=== PATIENT | female | born 1995 | race Caucasian/White ===

== ENCOUNTER 2017-01-09 23:24 | Emergency (ER) | payer OTHER ==
[2017-01-09] MEDS ORDERED: fentaNYL 100 MCG/2 ML INJ IVP ONE (23:50)
[2017-01-09] MEDS ORDERED: KETOROLAC 15 MG/1 ML SDV IVP ONE (23:50)
--- NOTE | 2017-01-09 23:50 | EDPHY ---
H & P Stated Complaint: vaginal pain Time Seen by Provider: 01/09/17 23:40 HPI/ROS: HPI The patient presents with lower abdominal pain which has been present since she had an IUD inserted on December 22, though much more severe over the last 48 hours. The pain is sharp, mostly in her mid lower abdomen the radiates toward her back. It is worse with movement and improved somewhat with ibuprofen. She has had vaginal bleeding since insertion of the IUD, using 4-5 pads per day. She denies any vaginal discharge or fevers. She has no prior history of similar pain. REVIEW OF SYSTEMS Constitutional: No fever, no chills. Eyes: No discharge. ENT: No sore throat. Cardiovascular: No chest pain, no palpitations. Respiratory: No cough, no shortness of breath. Gastrointestinal: See HPI Genitourinary: No hematuria. Musculoskeletal: No back pain. Skin: No rashes. Neurological: No headache. PMHx: Healthy, IUD in place PHYSICAL General Appearance: Alert, uncomfortable appearing Eyes: Pupils equal and round no pallor or injection ENT, Mouth: Mucous membranes moist Respiratory: There are no retractions, lungs are clear to auscultation Cardiovascular: Regular rate and rhythm Gastrointestinal: Abdomen is soft with tenderness in the lower quadrants. Neurological: A&O, moves all extremities Skin: Warm and dry, no rashes Musculoskeletal: Neck is supple non tender Extremities: symmetrical, full range of motion Psychiatric: Patient is oriented X 3, there is no agitation Source: Patient Exam Limitations: No limitations - Personal History LMP (Females 10-55): 22-28 Days Ago Current Tetanus/Diphtheria Vaccine: Yes Current Tetanus Diphtheria and Acellular Pertussis (TDAP): Yes - Medical/Surgical History Hx Asthma: No Hx Chronic Respiratory Disease: No Hx Diabetes: No Hx Cardiac Disease: No Hx Renal Disease: No Hx Cirrhosis: No Hx Alcoholism: No Hx HIV/AIDS: No Hx Splenectomy or Spleen Trauma: No Other PMH: DENIES - Social History Smoking Status: Never smoked Constitutional: Initial Vital Signs Temperature (C) 36.3 C 01/09/17 23:27 Heart Rate 100 01/09/17 23:27 Respiratory Rate 16 01/09/17 23:27 Blood Pressure 134/81 H 01/09/17 23:27 O2 Sat (%) 99 01/09/17 23:27 O2 Delivery Mode Room Air Allergies/Adverse Reactions: amoxicillin Allergy (Verified 01/09/17 23:27) Opioids - Morphine Analogues Allergy (Verified 01/09/17 23:27) PAIN MEDS Allergy (Uncoded 03/05/16 13:20) Home Medications: Medication Instructions Recorded NK [No Known Home Meds] 01/09/17 Medical Decision Making - Diagnostics Imaging: Pelvic ultrasound reviewed by me, interpreted by Dr. Velasquez shows IUD in appropriate position, small amount of free fluid in the pelvis. ED Course/Re-evaluation: 11:45 p.m.- Initial patient encounter, she is quite uncomfortable appearing. She does have tenderness in her lower abdomen. I have ordered Toradol and fentanyl for her. I will check basic labs and an ultrasound. Previously in the evening I talked with her primary OBGYN Dr. Meek who explained the patient's recent history of IUD placement, she had an ultrasound to confirm placement when she return to the clinic with pain. She was evaluated for a UTI with a negative urine culture as well. 12:50 a.m.- The patient is feeling better after receiving pain medication. Labs have resulted and are normal except for urine suggestive of infection. The patient does not have any irritative voiding symptoms I am not sure if this is a contaminated specimen. I will not treat until the urine culture has resulted. I spoke with Dr. Velasquez of Radiology. The patient's IUD is in good position. The patient is certain that she would like to have the IUD removed, thus I will perform this in the ER. 1:10 a.m.- Patient's IUD was removed without any difficulty. She continues to have mild pain. I will give her a dose of Tylenol and she will be discharged home with instructions to continue ibuprofen and follow up with her OBGYN. Differential Diagnosis: This is a 21-year-old healthy female who presents with lower abdominal pain associated with vaginal bleeding for the last 48 hours, she is status post IUD insertion on December 22. On exam, she is uncomfortable appearing, she is tender in her lower quadrants. Differential diagnosis includes IUD which has migrated, UTI, PID. - Data Points Laboratory Results: Laboratory Results 01/10/17 00:05 01/10/17 00:05 01/10/17 00:05 WBC 11.48 H 10^3/uL (3.80-9.50) RBC 4.93 10^6/uL (4.18-5.33) Hgb 14.5 g/dL (12.6-16.3) Hct 41.7 % (38.0-47.0) MCV 84.6 fL (81.5-99.8) MCH 29.4 pg (27.9-34.1) MCHC 34.8 g/dL (32.4-36.7) RDW 12.8 % (11.5-15.2) Plt Count 261 10^3/uL (150-400) MPV 9.3 fL (8.7-11.7) Neut % (Auto) 55.2 % (39.3-74.2) Lymph % (Auto) 34.6 % (15.0-45.0) Miner % (Auto) 7.7 % (4.5-13.0) Eos % (Auto) 1.8 % (0.6-7.6) Baso % (Auto) 0.4 % (0.3-1.7) Nucleat RBC Rel Count 0.0 % (0.0-0.2) Absolute Neuts (auto) 6.34 10^3/uL (1.70-6.50) Absolute Lymphs (auto) 3.97 H 10^3/uL (1.00-3.00) Absolute Monos (auto) 0.88 H 10^3/uL (0.30-0.80) Absolute Eos (auto) 0.21 10^3/uL (0.03-0.40) Absolute Basos (auto) 0.05 10^3/uL (0.02-0.10) Absolute Nucleated RBC 0.00 10^3/uL (0-0.01) Immature Gran % 0.3 % (0.0-1.1) Immature Gran # 0.03 10^3/uL (0.00-0.10) Sodium 144 mEq/L (134-144) Potassium 4.0 mEq/L (3.5-5.2) Chloride 111 H mEq/L (97-110) Carbon Dioxide 20 L mEq/l (22-31) Anion Gap 13 mEq/L (8-16) BUN 16 mg/dL (7-23) Creatinine 0.8 mg/dL (0.6-1.0) Estimated GFR > 60 Glucose 92 mg/dL (70-100) Calcium 9.9 mg/dL (8.5-10.4) Total Bilirubin 0.5 mg/dL (0.1-1.4) AST 16 IU/L (14-46) ALT 31 IU/L (9-52) Alkaline Phosphatase 53 IU/L (38-126) Total Protein 7.4 g/dL (6.3-8.2) Albumin 4.4 g/dL (3.5-5.0) Beta HCG, Qual NEGATIVE Urine Color YELLOW Urine Appearance MODERATELY TURBID Urine pH 7.0 (5.0-7.5) Ur Specific [place] 1.025 (1.002-1.030) Urine Protein 1+ H (NEGATIVE) Urine Ketones NEGATIVE (NEGATIVE) Urine Blood 3+ H (NEGATIVE) Urine Nitrate NEGATIVE (NEGATIVE) Urine Bilirubin NEGATIVE (NEGATIVE) Urine Urobilinogen NEGATIVE EU (0.2-1.0) Ur Leukocyte Esterase 2+ H (NEGATIVE) Urine RBC 50-182 H /hpf (0-3) Urine WBC 50-182 H /hpf (0-3) Ur Epithelial Cells TRACE /lpf (NONE-1+) Urine Bacteria TRACE H /hpf (NONE SEEN) Urine Mucus TRACE /lpf (NONE-1+) Ur Culture Indicated? INDICATED H (NI) Urine Glucose NEGATIVE (NEGATIVE) Medications Given: Discontinued Medications Acetaminophen (Tylenol) 1,000 mg PO EDNOW ONE Stop: 01/10/17 01:43 Last Admin: 01/10/17 01:47 Dose: 1,000 mg Fentanyl (Sublimaze) 50 mcg IVP EDNOW ONE Stop: 01/09/17 23:51 Last Admin: 01/10/17 00:08 Dose: 50 mcg Hydromorphone HCl (Dilaudid) 0.5 mg IVP EDNOW ONE Stop: 01/10/17 00:50 Last Admin: 01/10/17 01:02 Dose: 0.5 mg Ketorolac Tromethamine (Toradol) 15 mg IVP EDNOW ONE Stop: 01/09/17 23:51 Last Admin: 01/10/17 00:09 Dose: 15 mg Departure - Departure Disposition: Home, Routine, Self-Care Clinical Impression: IUD complication, Lower abdominal pain Condition: Good Instructions: Pelvic Pain in Women (ED) Additional Instructions: Please return to the emergency room if your worse in any way. Referrals: Dinora Blake MD [Medical Doctor] - As per Instructions
[2017-01-10 00:13] LABS: % IMMATURE GRANULYOCYTES 0.3 % (0.0-1.1); ABSOLUTE IMMATURE GRANULOCYTES 0.03 10^3/uL (0.00-0.10); ADD DIFF? NO; ADD MORPH? NO; ADD SCAN? NO; ATYPICAL LYMPHOCYTE FLAG 30 (0-99); FRAGMENT RBC FLAG 0 (0-99); HEMATOCRIT 41.7 % (38.0-47.0); HEMOGLOBIN 14.5 g/dL (12.6-16.3); LEFT SHIFT FLG 0 (0-99); LIPEMIA HEMOLYSIS FLAG 90 (0-99); MEAN CELL HEMOGLOBIN 29.4 pg (27.9-34.1); MEAN CELL HEMOGLOBIN CONCENTR. 34.8 g/dL (32.4-36.7); MEAN CELL VOLUME 84.6 fL (81.5-99.8); MEAN PLATELET VOLUME 9.3 fL (8.7-11.7); PLATELET CLUMPS FLAG 20 (0-99); PLATELET COUNT 261 10^3/uL (150-400); RED BLOOD CELL COUNT 4.93 10^6/uL (4.18-5.33); RED CELL DISTRIBUTION WIDTH 12.8 % (11.5-15.2)
[2017-01-10 00:18] LABS: COLOR YELLOW; LEUKOCYTE ESTERASE,URINE 2+ (NEGATIVE); NITRITE,URINE NEGATIVE (NEGATIVE)
[2017-01-10 00:21] LABS: BACTERIA TRACE /hpf (NONE SEEN); MUCUS TRACE /lpf (NONE-1+); RBC,URINE 50-182 /hpf (0-3); WBC,URINE 50-182 /hpf (0-3)
[2017-01-10 00:34] LABS: ALANINE AMINOTRANSFERASE 31 IU/L (9-52); ALBUMIN 4.4 g/dL (3.5-5.0); ALKALINE PHOSPHATASE 53 IU/L (38-126); ANION GAP 13 mEq/L (8-16); ASPARTATE AMINOTRANSFERASE 16 IU/L (14-46); BILIRUBIN,TOTAL 0.5 mg/dL (0.1-1.4); CALCIUM 9.9 mg/dL (8.5-10.4); CARBON DIOXIDE 20 mEq/l (22-31); CHLORIDE 111 mEq/L (97-110); CREATININE 0.8 mg/dL (0.6-1.0); GLOMERULAR FILTRATION RATE > 60; GLUCOSE 92 mg/dL (70-100); SODIUM 144 mEq/L (134-144); TOTAL PROTEIN 7.4 g/dL (6.3-8.2)
[2017-01-10] MEDS ORDERED: HYDROmorphONE/DILAUDID 1 MG/ML SYR ONE (00:43)
[2017-01-10] MEDS ORDERED: HYDROmorphONE/DILAUDID 1 MG/ML SYR IVP ONE (00:49)
[2017-01-10 01:21] VITALS: RESP 16; O2SAT 98
[2017-01-10] MEDS ORDERED: ACETAMINOPHEN 500 MG TAB PO ONE (01:42)
[2017-01-10 01:56] VITALS: BP 114/85; PULSE 68; TEMP 97.7
--- NOTE | 2017-01-10 16:17 | US ---
Ultrasound Pelvis Complete (Transabdominal and Endovaginal) Including Duplex/Doppler Imaging History: Pelvic pain ? IUD position. Comparison: None. Technique: Transabdominal and endovaginal ultrasound images were obtained. Endovaginal images obtain ed for better evaluation of the uterine myometrium and adnexa. Duplex/Doppler imaging of adnexa. Findings: Uterus measures 7 x 3 x 5 cm. Endometrial thickness is 4 mm. IUD appears in good position centrally within the endometrial canal. No definite uterine leiomyomata. Right ovary measures 3.1 x 2.3 x 1.7 cm. Left ovary measures 3.9 x 2.2 x 2.1 cm. No adnexal masses. M inimal free fluid in the pelvis. Color Doppler flow to both ovaries without torsion. Impression: 1. IUD appears in good position centrally within the endometrial canal. 2. No adnexal masses or ovarian torsion. Findings and recommendations discussed with emergency department physician, Debra Grimes MD at 0045 hours on January 10, 2017. Final report concurs with initial preliminary interpretation.
== END 2017-01-10 01:56 | disposition home or self-care (01) ==
DX: R10.30 Lower abdominal pain, unspecified (principal); T83.39XA Other mechanical complication of intrauterine contraceptive device, initial encounter; Y82.8 Other medical devices associated with adverse incidents
CPT/HCPCS: 96374; J1170; J1885; J3010

== ENCOUNTER 2017-01-11 20:07 | Emergency (ER) | payer OTHER ==
[2017-01-11 20:14] VITALS: RESP 18; TEMP 97.9
[2017-01-11] MEDS ORDERED: NS 1,000 ML IV ONE ×2 (21:00→22:15)
[2017-01-11] MEDS ORDERED: ONDANSETRON 4 MG/2 ML VIAL IVP ONE ×2 (21:00→22:15)
--- NOTE | 2017-01-11 21:07 | EDPHY ---
H & P Stated Complaint: lower abd pain hesitancy n/v HPI/ROS: CHIEF COMPLAINT: Abdominal pelvic pain HISTORY OF PRESENT ILLNESS: several days of lower abdominal and central abdominal pain. This is moderate to severe. This started after IUD was placed 2 weeks ago. It is worsened over the past few days. Nausea but no vomiting. No changes in her bowel movements. She does have vaginal bleeding that is unchanged from previous visit. She has no chest pain or shortness of breath. No syncope. Less than 1 pad per hour vaginal bleeding. She was seen here 2 days ago, when a pelvic exam was performed at IUD was removed. She was to follow up with her OB radar engineer, but her pain is too severe at this time PREVIOUS ABDOMINAL SURGERIES/DIAGNOSES: IUD removal 2 days ago. REVIEW OF SYSTEMS: Ten systems reviewed and are negative unless otherwise noted in the HPI EXAMINATION: General Appearance: Alert, no distress. Anxious Head: normocephalic, atraumatic Eyes: Pupils equal and round, no conjunctival pallor or injection ENT, Mouth: Mucous membranes moist. Uvula midline. No erythema or edema. Neck: Normal inspection, supple, non-tender Respiratory: Lungs are clear to auscultation . No wheezing, rhonchi or crackles. Cardiovascular: Regular rate and rhythm . No murmur. Pulses intact distally. Gastrointestinal: Abdomen is soft. Significant tender to palpation over the umbilical, epigastric, and bilateral lower quadrants. There is no tympany or rigidity. Guarding in multiple areas. No CVA tenderness. Neurological: A&O, nonfocal, normal gait Skin: Warm and dry, no rash Extremities: Nontender, no pedal edema Psychiatric: Mood and affect normal DIFFERENTIAL DIAGNOSES: Including but not limited to Acute appendicitis , enteritis, colitis, diverticulitis, cystitis, UTI, stone MDM: 9:00 p.m. central lower abdominal pain. She was here 2 days ago for the same pain. At that time her IUD was removed and she was discharged home with pain medication and nausea medication. She spoke with her radar engineer this morning and informed her of her severity of pain, And she recommended that she present to the emergency department. She is significantly tender to palpation in multiple areas of the abdomen. This is possibly of proportion to examination. She did not have a CT scan on her 1st visit, thus I will order CT scan of the abdomen and pelvis following creatinine verification. 10:00 p.m. notified by radiologist Dr. Dolye that there is no acute finding on the CT scan. There may be a very small area around the transverse colon that has some stranding. This is only seen on 1 set of images and not on the sagittal or coronal. This does not correlate clinically with any of her pain. Given the laboratory studies I feel this is more likely related to endometriosis than any other of the differential. She does have a mild leukocytosis, but she also has bacterial vaginosis that was positive on a swab from a radar engineer but is yet to be treated. She has no flank pain upon palpation. She is not vomiting. Her pain is improving here. We discussed discharge home with antibiotic therapy for the bacterial vaginosis, follow up with her radar engineer, pain medication and nausea medication. She is comfortable with this plan and comfortable with being discharged home at this time. ED Precautions: Worsening pain. Fever. Bloody stools. Bloody emesis. Constipation or diarrhea. SUPERVISION: Patient was evaluated in conjunction with the supervising physician. Please see their note for details. Source: Patient - Personal History LMP (Females 10-55): Now Current Tetanus/Diphtheria Vaccine: Yes Current Tetanus Diphtheria and Acellular Pertussis (TDAP): Yes - Medical/Surgical History Hx Asthma: No Hx Chronic Respiratory Disease: No Hx Diabetes: No Hx Cardiac Disease: No Hx Renal Disease: No Hx Cirrhosis: No Hx Alcoholism: No Hx HIV/AIDS: No Hx Splenectomy or Spleen Trauma: No Other PMH: DENIES - Social History Smoking Status: Never smoked Constitutional: Initial Vital Signs Temperature (C) 97.9 F 01/11/17 20:10 Heart Rate 96 01/11/17 20:10 Respiratory Rate 18 01/11/17 20:10 Blood Pressure 127/82 H 01/11/17 20:10 O2 Sat (%) 98 01/11/17 20:10 O2 Delivery Mode Room Air Allergies/Adverse Reactions: amoxicillin Allergy (Verified 01/09/17 23:27) Opioids - Morphine Analogues Allergy (Verified 01/09/17 23:27) PAIN MEDS Allergy (Uncoded 03/05/16 13:20) Home Medications: Medication Instructions Recorded Ondansetron Odt [Zofran Odt 4 mg 4 mg PO Q4 PRN #12 tab 01/11/17 (*)] metroNIDAZOLE [Flagyl 500 mg (*)] 500 mg PO TID #28 tab 01/11/17 oxyCODONE HCL/ACETAMINOPHEN 1 each PO Q4-6PRN PRN #20 tablet 01/11/17 [Percocet 5-325 mg Tablet] Medical Decision Making - Data Points Laboratory Results: Laboratory Results 01/11/17 21:30 01/11/17 21:30 01/11/17 01/11/17 01/11/17 21:30 21:28 20:20 WBC 13.86 H 10^3/uL (3.80-9.50) RBC 4.77 10^6/uL (4.18-5.33) Hgb 14.3 g/dL (12.6-16.3) POC Hgb 14.3 gm/dL (12.3-15.9) Hct 40.7 % (38.0-47.0) POC Hct 42 % (35.5-47.5) MCV 85.3 fL (81.5-99.8) MCH 30.0 pg (27.9-34.1) MCHC 35.1 g/dL (32.4-36.7) RDW 12.9 % (11.5-15.2) Plt Count 262 10^3/uL (150-400) MPV 9.6 fL (8.7-11.7) Neut % (Auto) 69.6 % (39.3-74.2) Lymph % (Auto) 23.7 % (15.0-45.0) Humphreys % (Auto) 5.4 % (4.5-13.0) Eos % (Auto) 0.5 L % (0.6-7.6) Baso % (Auto) 0.4 % (0.3-1.7) Nucleat RBC Rel Count 0.0 % (0.0-0.2) Absolute Neuts (auto) 9.65 H 10^3/uL (1.70-6.50) Absolute Lymphs (auto) 3.28 H 10^3/uL (1.00-3.00) Absolute Monos (auto) 0.75 10^3/uL (0.30-0.80) Absolute Eos (auto) 0.07 10^3/uL (0.03-0.40) Absolute Basos (auto) 0.06 10^3/uL (0.02-0.10) Absolute Nucleated RBC 0.00 10^3/uL (0-0.01) Immature Gran % 0.4 % (0.0-1.1) Immature Gran # 0.05 10^3/uL (0.00-0.10) PT 13.8 SEC (12.0-15.0) INR 1.07 (0.83-1.16) APTT 27.4 SEC (23.0-38.0) POC Sodium 143 mEq/L (134-144) Sodium 140 mEq/L (134-144) POC Potassium 3.2 L mEq/L (3.3-5.0) Potassium 3.5 mEq/L (3.5-5.2) POC Chloride 109 H mEq/L (96-108) Chloride 109 mEq/L (97-110) Carbon Dioxide 20 L mEq/l (22-31) Anion Gap 11 mEq/L (8-16) POC BUN 11 mg/dL (7-23) BUN 12 mg/dL (7-23) Creatinine 0.8 mg/dL (0.6-1.0) POC Creatinine 0.7 mg/dL (0.6-1.2) Estimated GFR > 60 Glucose 100 mg/dL (70-100) POC Glucose 103 H mg/dL (70-100) Calcium 9.9 mg/dL (8.5-10.4) Total Bilirubin 0.8 D mg/dL (0.1-1.4) Conjugated Bilirubin 0.5 mg/dL (0.0-0.5) Unconjugated Bilirubin 0.3 mg/dL (0.0-1.1) AST 14 IU/L (14-46) ALT 32 IU/L (9-52) Alkaline Phosphatase 54 IU/L (38-126) Total Protein 7.3 g/dL (6.3-8.2) Albumin 4.5 g/dL (3.5-5.0) Lipase 80.0 IU/L (23-300) Beta HCG, Qual NEGATIVE Urine Color YELLOW Urine Appearance CLEAR Urine pH 7.0 (5.0-7.5) Ur Specific [place] 1.027 (1.002-1.030) Urine Protein 1+ H (NEGATIVE) Urine Ketones 1+ H (NEGATIVE) Urine Blood 2+ H (NEGATIVE) Urine Nitrate NEGATIVE (NEGATIVE) Urine Bilirubin NEGATIVE (NEGATIVE) Urine Urobilinogen NEGATIVE EU (0.2-1.0) Ur Leukocyte Esterase 1+ H (NEGATIVE) Urine RBC 50-182 H /hpf (0-3) Urine WBC 5-10 H /hpf (0-3) Ur Epithelial Cells TRACE /lpf (NONE-1+) Urine Mucus TRACE /lpf (NONE-1+) Ur Culture Indicated? INDICATED H (NI) Urine Glucose NEGATIVE (NEGATIVE) Medications Given: Discontinued Medications Sodium Chloride (Ns) 1,000 mls @ 0 mls/hr IV ONCE ONE PRN Reason: Wide Open Stop: 01/11/17 21:01 Last Admin: 01/11/17 21:30 Dose: 1,000 mls Ceftriaxone Sodium/Dextrose (Rocephin 1 Gm (Premix)) 50 mls @ 100 mls/hr IV EDNOW ONE PRN Reason: Protocol Stop: 01/11/17 22:38 Last Admin: 01/11/17 22:26 Dose: Not Given Morphine Sulfate (Morphine) 6 mg IVP EDNOW ONE Stop: 01/11/17 21:01 Last Admin: 01/11/17 21:30 Dose: 6 mg Ondansetron HCl (Zofran) 8 mg IVP EDNOW ONE Stop: 01/11/17 21:01 Last Admin: 01/11/17 21:30 Dose: 8 mg Point of Care Test Results: 01/11/17 21:28 POC Sodium 143 POC Potassium 3.2 L POC Chloride 109 H POC BUN 11 POC Creatinine 0.7 POC Glucose 103 H Departure - Departure Disposition: Home, Routine, Self-Care Clinical Impression: Bacterial vaginosis Abdominal pain Qualifiers: Abdominal location: unspecified location Qualifier Code: (R10.9) Unspecified abdominal pain Condition: Good Instructions: Bacterial Vaginosis (ED), Endometriosis (ED), Pelvic Pain in Women (ED) Additional Instructions: contact radar engineer in the morning for definitive care. Return to the ER for worsening pain, fever, chills, vomiting [place]errals: [place],. [Primary Care Provider] - As per Instructions SON RENEE [Medical Doctor] - As per Instructions Prescriptions: metroNIDAZOLE [Flagyl 500 mg (*)] 500 mg PO TID #28 tab oxyCODONE HCL/ACETAMINOPHEN [Percocet 5-325 mg Tablet] 1 each PO Q4-6PRN PRN # 20 tablet PRN Reason: Pain, Moderate Ondansetron Odt [Zofran Odt 4 mg (*)] 4 mg PO Q4 PRN #12 tab PRN Reason: Nausea/Vomiting, Use 1st
[2017-01-11 21:08] LABS: COLOR YELLOW; LEUKOCYTE ESTERASE,URINE 1+ (NEGATIVE); NITRITE,URINE NEGATIVE (NEGATIVE)
[2017-01-11 21:19] LABS: MUCUS TRACE /lpf (NONE-1+); RBC,URINE 50-182 /hpf (0-3)
[2017-01-11] MEDS ORDERED: IOPAMIDOL (ISOVUE-300) 100 ML BTL IV ONE (21:40)
[2017-01-11 21:48] LABS: % IMMATURE GRANULYOCYTES 0.4 % (0.0-1.1); ABSOLUTE IMMATURE GRANULOCYTES 0.05 10^3/uL (0.00-0.10); ADD DIFF? NO; ADD MORPH? NO; ADD SCAN? NO; ATYPICAL LYMPHOCYTE FLAG 20 (0-99); FRAGMENT RBC FLAG 0 (0-99); HEMATOCRIT 40.7 % (38.0-47.0); HEMOGLOBIN 14.3 g/dL (12.6-16.3); LEFT SHIFT FLG 0 (0-99); LIPEMIA HEMOLYSIS FLAG 90 (0-99); MEAN CELL HEMOGLOBIN CONCENTR. 35.1 g/dL (32.4-36.7); MEAN CELL VOLUME 85.3 fL (81.5-99.8); MEAN PLATELET VOLUME 9.6 fL (8.7-11.7); PLATELET CLUMPS FLAG 0 (0-99); PLATELET COUNT 262 10^3/uL (150-400); RED BLOOD CELL COUNT 4.77 10^6/uL (4.18-5.33); RED CELL DISTRIBUTION WIDTH 12.9 % (11.5-15.2)
[2017-01-11 21:56] LABS: INR 1.07 (0.83-1.16); PROTIME(PATIENT) 13.8 SEC (12.0-15.0)
[2017-01-11 21:57] LABS: APTT 27.4 SEC (23.0-38.0)
[2017-01-11 22:03] LABS: ALANINE AMINOTRANSFERASE 32 IU/L (9-52); ALBUMIN 4.5 g/dL (3.5-5.0); ALKALINE PHOSPHATASE 54 IU/L (38-126); ANION GAP 11 mEq/L (8-16); ASPARTATE AMINOTRANSFERASE 14 IU/L (14-46); BILIRUBIN,TOTAL 0.8 mg/dL (0.1-1.4); BILIRUBIN-CONJUGATED 0.5 mg/dL (0.0-0.5); BILIRUBIN-UNCONJUGATED 0.3 mg/dL (0.0-1.1); CALCIUM 9.9 mg/dL (8.5-10.4); CARBON DIOXIDE 20 mEq/l (22-31); CHLORIDE 109 mEq/L (97-110); CREATININE 0.8 mg/dL (0.6-1.0); GLOMERULAR FILTRATION RATE > 60; GLUCOSE 100 mg/dL (70-100); POTASSIUM 3.5 mEq/L (3.5-5.2); SODIUM 140 mEq/L (134-144); TOTAL PROTEIN 7.3 g/dL (6.3-8.2)
[2017-01-11] MEDS ORDERED: ONDANSETRON 4MG PREPACK#2 BTL TAKEHOME ONE (22:31)
[2017-01-11] MEDS ORDERED: OXYCODONE/APAP 5/325MG PREPACK#4 BTL TAKEHOME ONE (22:31)
[2017-01-11] MEDS ORDERED: metroNIDAZOLE 500 MG TAB PO ONE (22:32)
--- NOTE | 2017-01-11 22:38 | CT ---
CT Scan of the Abdomen and Pelvis (With Contrast) Clinical Indications: Central and lower abdominal pain for two days. Technique: Dilute contrast was given orally prior to the scan. During the machine power injection o f 80 mL Isovue-300 intravenously, multidetector helical CT imaging was performed from the diaphragm t o the pubic symphysis. Coronal and parasagittal reformatted images are reviewed on the workstation. Dose reduction techniques were utilized. Findings: Appendix is normal. No abnormal free fluid or free air. Physiologic amount of free fluid is present in the pelvis. The only potential abnormality in this patient is perhaps very mild transverse colonic wall thickenin g, with very minimal surrounding mesenteric stranding. This involves a short 5-cm stretch of the tra nsverse colon, in the upper abdomen, 6 cm above her umbilical ring. It is not associated with disten tion or fluid level. The rest of the bowels are normal. I also do not see any diverticuli at this r egion, although the patient does have descending colonic and sigmoid colonic diverticulosis. The lung bases are clear. The liver, spleen, pancreas, kidneys, gallbladder, and adrenal glands are normal. Vessels enhance normally. Impression: 1. Normal appendix. 2. Sigmoid colonic diverticulosis. 3. Query subtle wall thickening and mesenteric stranding in the mid upper abdomen, involving transve rse colon. Could the patient have early diverticulitis? Findings and recommendations discussed with Robb Cuevas PA-C, at 2210 hours, on December. Final report concurs with initial preliminary interpretation.
[2017-01-11 23:09] VITALS: BP 120/79; PULSE 84; O2SAT 100
== END 2017-01-11 23:07 | disposition home or self-care (01) ==
DX: N76.0 Acute vaginitis (principal)
CPT/HCPCS: 82947-QW; 96374; J2405; Q9967